=== PATIENT | female | born 2000 | race Asian ===

== ENCOUNTER 2018-08-05 16:04 | Emergency (ER) | payer OTHER ==
[~2018-08-05] VITALS: Ht 162.6 cm; Wt 60.8 kg
[2018-08-05] MEDS ORDERED: NAPROSYN500 MG PO (18:03)
[2018-08-05 18:30] VITALS: BP 104/69
== END 2018-08-05 18:31 | disposition home or self-care (01) ==
LOC: ER 16:04
DX: S82.434A Nondisplaced oblique fracture of shaft of right fibula, initial encounter for closed fracture (principal); W00.0XXA Fall on same level due to ice and snow, initial encounter; Y93.89 Activity, other specified; Y92.89 Other specified places as the place of occurrence of the external cause; Y99.8 Other external cause status

== ENCOUNTER 2018-08-13 17:54 | Emergency (ER) | payer OTHER ==
[~2018-08-13] VITALS: Ht 162.6 cm; Wt 60.8 kg
[~2018-08-13 17:54] MED LIST: NAPROSYN500 MG PO
[2018-08-13] MEDS ORDERED: IBUPROFEN 600600 M1 PO (18:59)
[2018-08-13 19:13] VITALS: BP 122/61
== END 2018-08-13 19:14 | disposition home or self-care (01) ==
LOC: ER 17:54
DX: S82.64XA Nondisplaced fracture of lateral malleolus of right fibula, initial encounter for closed fracture (principal); W01.0XXA Fall on same level from slipping, tripping and stumbling without subsequent striking against object, initial encounter; Y93.89 Activity, other specified; Y92.89 Other specified places as the place of occurrence of the external cause; Y99.8 Other external cause status

== ENCOUNTER 2018-09-17 13:11 | Emergency (ER) | payer OTHER ==
[~2018-09-17] VITALS: Ht 162.6 cm; Wt 60.8 kg
[~2018-09-17 13:11] MED LIST changes: +IBUPROFEN 600600 M1 PO
[2018-09-17 13:12] VITALS: BP 97/58
== END 2018-09-17 15:22 | disposition home or self-care (01) ==
LOC: ER 13:11
DX: S82.61XA Displaced fracture of lateral malleolus of right fibula, initial encounter for closed fracture (principal); X58.XXXA Exposure to other specified factors, initial encounter; Y93.89 Activity, other specified; Y92.89 Other specified places as the place of occurrence of the external cause; Y99.8 Other external cause status